=== PATIENT | female | born 1950 | race Caucasian/White ===

== ENCOUNTER 2017-04-11 20:50 | Emergency (ER) | payer OTHER, BC ==
[~2017-04-11] VITALS: Ht 167.6 cm; Wt 95.2 kg
[2017-04-11] MEDS ORDERED: PERCOCET 5/31 TABLET PO (23:29)
[2017-04-11 23:51] VITALS: BP 128/65
== END 2017-04-11 23:57 | disposition home or self-care (01) ==
LOC: EME → EDBD 20:50 → EME 20:50
PROC: 2W3QX1Z Immobilization of Right Lower Leg using Splint (ICD-10-PCS; principal; 2017-04-11)
DX: S82.841A Displaced bimalleolar fracture of right lower leg, initial encounter for closed fracture (principal); W10.9XXA Fall (on) (from) unspecified stairs and steps, initial encounter; Y92.009 Unspecified place in unspecified non-institutional (private) residence as the place of occurrence of the external cause; R11.0 Nausea
CPT/HCPCS: 73610; 93005; 99281; 99285; J2405; J3010; J7040